=== PATIENT | female | born 1975 | race Caucasian/White ===

== ENCOUNTER 2017-03-01 00:17 | Emergency (ER) | payer MEDICAID, OTHER ==
[~2017-03-01] VITALS: Ht 170.2 cm; Wt 52.2 kg
--- NOTE | 2017-03-01 00:25 | NUR ---
TO BED 6 A 41 YO FEMALE PATIENT BIBSELF C/O LEFT SIDE ABD PAIN RADIATING TO BACK. +N/V SINCE YESTERDAY. VSS. NAD NOTED. NONDIAPHORETIC. GOWNED. PLACED ON MONITOR. COMFORT MEASURES RENDERED.
--- NOTE | 2017-03-01 00:30 | NUR ---
DR MCNULTY AT BEDSIDE TO EVALUATE PATIENT.
--- NOTE | 2017-03-01 00:40 | NUR ---
started a saline lock on the lac g20, blood drawn and sent to lab.
[2017-03-01] MEDS ORDERED: ONDANSETRON HCL/PF 4 MG/2 ML VIAL ONE ×2 (00:41→01:57)
[2017-03-01] MEDS ORDERED: HYDROMORPHONE INJ 2 MG/ML DISP.SYRIN ONE (00:42)
[2017-03-01 00:51] LABS: BASOPHILS # (AUTO) 0.1 /CMM (0.0-0.2); BASOPHILS % (AUTO) 0.5 % (0.0-2.0); EOSINOPHILS # (AUTO) 0.3 /CMM (0.0-0.7); EOSINOPHILS % (AUTO) 2.6 % (0.0-6.0); HEMATOCRIT 38 % (33-45); HEMOGLOBIN 12.6 g/dL (11.5-14.8); LYMPHOCYTES # (AUTO) 2.1 /CMM (0.8-4.8); LYMPHOCYTES % (AUTO) 16.2 % (20.0-44.0); MEAN CORPUSCULAR HEMOGLOBIN 29 PG (26.0-33.0); MEAN CORPUSCULAR HGB CONC 34 g/dl (31.0-36.0); MEAN CORPUSCULAR VOLUME 87 fL (82-100); MONOCYTES # (AUTO) 0.5 /CMM (0.1-1.30); MONOCYTES % (AUTO) 3.9 % (2.0-12.0); NEUTROPHILS # (AUTO) 9.9 /CMM (1.8-8.9); NEUTROPHILS % (AUTO) 76.8 % (43.0-81.0); PLATELET COUNT (AUTO) 281 /CMM (150-450); RDW COEFFICIENT OF VARIATION 14.1 (11.5-15.0); RED BLOOD CELL COUNT(AUTO) 4.36 MIL/uL (4.0-5.2); WHITE BLOOD COUNT (AUTO) 12.9 K/uL (4.3-11.0)
[2017-03-01] MEDS ORDERED: HYDROMORPHONE INJ 2 MG/ML DISP.SYRIN IV ONE (01:00)
[2017-03-01] MEDS ORDERED: ONDANSETRON HCL/PF 4 MG/2 ML VIAL IVP ONE (01:00)
[2017-03-01] MEDS ORDERED: IV NS 0.9% 1,000 ML BAG IV ONE (01:00)
--- NOTE | 2017-03-01 01:00 | NUR ---
urine collected via clean catch, sent to lab.
[2017-03-01 01:07] LABS: APPEARANCE,URINE CLEAR (CLEAR); BILIRUBIN,URINE NEGATIVE (NEGATIVE); BLOOD, URINE NEGATIVE Ery/uL (NEGATIVE); COLOR,URINE YELLOW (YELLOW); KETONES,URINE NEGATIVE (NEGATIVE); LEUKOCYTE ESTERASE ,URINE NEGATIVE (NEGATIVE); NITRITE, URINE NEGATIVE (NEGATIVE); PROTEIN,URINE NEGATIVE (NEGATIVE); UGLUCOSE NEGATIVE (NEGATIVE); UROBILINOGEN,URINE 0.2 EU/dL (0.2)
[2017-03-01 01:08] LABS: ALANINE AMINOTRANSFERASE 23 U/L (12-78); ALKALINE PHOSPHATASE 53 U/L (46-116); ASPARTATE AMINOTRANSFERASE 23 U/L (15-37); BILIRUBIN,TOTAL 0.2 mg/dL (0.2-1.0); CALCIUM, SERUM 8.9 mg/dL (8.5-10.1); CARBON DIOXIDE 30 mmol/L (21-32); CHLORIDE 101 mmol/L (98-107); CREATININE 0.8 mg/dL (0.6-1.3); GLUCOSE 91 mg/dL (74-106); LIPASE 150 U/L (73-393); SODIUM SERUM 139 mmol/L (136-145); TOTAL PROTEIN, SERUM 7.8 g/dL (6.4-8.2); UREA NITROGEN, BLOOD 13 mg/dL (7-18)
[2017-03-01 01:09] LABS: TROPONIN I < 0.017 ng/mL (0.00-0.056)
[2017-03-01 01:10] LABS: POTASSIUM 2.8 mmol/L (3.5-5.1)
[2017-03-01] MEDS ORDERED: KETOROLAC TROMETHAMINE INJ 30 MG/ML VIAL ONE (01:23)
--- NOTE | 2017-03-01 01:24 | NUR ---
PATIENT BACK FROM RADIOLOGY.
[2017-03-01] MEDS ORDERED: KETOROLAC TROMETHAMINE INJ 30 MG/ML VIAL IV ONE (01:30)
[2017-03-01] MEDS ORDERED: POTASSIUM CHLORIDE 20 MEQ TAB.PRT.SR PO ONE ×3 (01:54→02:00)
[2017-03-01] MEDS ORDERED: ONDANSETRON HCL/PF 4 MG/2 ML VIAL IV ONE (02:00)
--- NOTE | 2017-03-01 02:57 | NUR ---
IV removed. Catheter intact and site benign. Pressure and 4x4 applied to site. No bleeding noted. Patient discharged to home in stable condition. Written and verbal after care instructions given. Patient verbalizes understanding of instruction. Patient is ambulatory with steady gait, Instructed not to drive. No further complaints.
[2017-03-01 02:58] VITALS: BP 127/80
== END 2017-03-01 02:59 | disposition home or self-care (01) ==
LOC: ER 00:19
DX: K59.00 Constipation, unspecified (principal); K56.609 Unspecified intestinal obstruction, unspecified as to partial versus complete obstruction; Z85.42 Personal history of malignant neoplasm of other parts of uterus; Z90.710 Acquired absence of both cervix and uterus
CPT/HCPCS: 36415; 74176; 76856; 80048; 80076; 81001; 83690; 84484; 85025; 93005; 96361; 96374; 96375; 96376; 99285; A4606; J1170; J1885; J2405 ×2; J7030; 81000-TC; Z7610

== ENCOUNTER 2017-05-29 20:00 | Emergency (ER) | payer OTHER ==
[~2017-05-29] VITALS: Ht 167.6 cm; Wt 47.6 kg
--- NOTE | 2017-05-29 20:05 | NUR ---
TO BED 9 A 42 YO FEMALE PATIENT BIBSELF C/O "LLQ PAIN SINCE THIS MORNING." VSS. NAD NOTED. SKIN WARM AND DRY. COMFORT MEASURES RENDERED.
--- NOTE | 2017-05-29 20:10 | NUR ---
DR POST AT BEDSIDE TO EVALUATE PATIENT.
[2017-05-29] MEDS ORDERED: HYDROMORPHONE INJ 0.5 MG/0.5 ML SYRINGE ONE ×2 (20:18→21:20)
[2017-05-29] MEDS ORDERED: ONDANSETRON HCL/PF 4 MG/2 ML VIAL ONE (20:18)
--- NOTE | 2017-05-29 20:25 | NUR ---
STARTED A SALINE LOCK ON THE LAC G20, BLOOD DRAWN AND SENT TO LAB.
[2017-05-29 20:27] LABS: BASOPHILS # (AUTO) 0.1 /CMM (0.0-0.2); BASOPHILS % (AUTO) 1.1 % (0.0-2.0); EOSINOPHILS # (AUTO) 0.3 /CMM (0.0-0.7); EOSINOPHILS % (AUTO) 3.2 % (0.0-6.0); HEMATOCRIT 38 % (33-45); HEMOGLOBIN 13.1 g/dL (11.5-14.8); LYMPHOCYTES # (AUTO) 2.6 /CMM (0.8-4.8); LYMPHOCYTES % (AUTO) 33.2 % (20.0-44.0); MEAN CORPUSCULAR HEMOGLOBIN 28 PG (26.0-33.0); MEAN CORPUSCULAR HGB CONC 34 g/dl (31.0-36.0); MEAN CORPUSCULAR VOLUME 83 fL (82-100); MONOCYTES # (AUTO) 0.5 /CMM (0.1-1.30); NEUTROPHILS # (AUTO) 4.4 /CMM (1.8-8.9); NEUTROPHILS % (AUTO) 56.5 % (43.0-81.0); PLATELET COUNT (AUTO) 277 /CMM (150-450); RDW COEFFICIENT OF VARIATION 13.9 (11.5-15.0); RED BLOOD CELL COUNT(AUTO) 4.64 MIL/uL (4.0-5.2); WHITE BLOOD COUNT (AUTO) 7.9 K/uL (4.3-11.0)
[2017-05-29] MEDS ORDERED: IV NS 0.9% 500 ML BAG IV ONE (20:30)
[2017-05-29] MEDS ORDERED: HYDROMORPHONE INJ 2 MG/ML DISP.SYRIN IV ONE (20:30)
[2017-05-29] MEDS ORDERED: ONDANSETRON HCL/PF 4 MG/2 ML VIAL IVP ONE (20:30)
--- NOTE | 2017-05-29 20:33 | NUR ---
MEDICATED PATIENT ORDERED BY DR POST.
[2017-05-29 20:48] LABS: APPEARANCE,URINE Clear (CLEAR); BILIRUBIN,URINE Negative (NEGATIVE); BLOOD, URINE Negative Ery/uL (NEGATIVE); COLOR,URINE Yellow (YELLOW); KETONES,URINE Negative (NEGATIVE); LEUKOCYTE ESTERASE ,URINE Negative (NEGATIVE); NITRITE, URINE Negative (NEGATIVE); PROTEIN,URINE Negative (NEGATIVE); UGLUCOSE Negative (NEGATIVE); UROBILINOGEN,URINE 0.2 EU/dL (0.2)
--- NOTE | 2017-05-29 20:48 | NUR ---
ONGOING ULTRASOUND AT THE BEDSIDE.
[2017-05-29] MEDS ORDERED: HYDROMORPHONE INJ 0.5 MG/0.5 ML SYRINGE IV ONE (21:00)
[2017-05-29 21:25] LABS: ALBUMIN 4.2 g/dL (3.4-5.0); BILIRUBIN,DIRECT 0.1 mg/dL (0.0-0.2); BILIRUBIN,TOTAL 0.3 mg/dL (0.2-1.0); CALCIUM, SERUM 9.2 mg/dL (8.5-10.1); CREATININE 0.8 mg/dL (0.6-1.3); TOTAL PROTEIN, SERUM 8.1 g/dL (6.4-8.2)
[2017-05-29 21:28] LABS: POTASSIUM 2.7 mmol/L (3.5-5.1)
--- NOTE | 2017-05-29 22:35 | NUR ---
IV removed. Catheter intact and site benign. Pressure and 4x4 applied to site. No bleeding noted. Patient discharged to home in stable condition. Written and verbal after care instructions given. Patient verbalizes understanding of instruction. Patient is ambulatory with steady gait, instructed patient not to drive. vss. nad noted. no further complaints.
[2017-05-29 23:28] VITALS: BP 115/58
== END 2017-05-29 23:32 | disposition home or self-care (01) ==
LOC: ER 20:01
DX: N20.1 Calculus of ureter (principal); N83.202 Unspecified ovarian cyst, left side; C55 Malignant neoplasm of uterus, part unspecified; Z90.710 Acquired absence of both cervix and uterus; Z87.442 Personal history of urinary calculi; Z90.5 Acquired absence of kidney
CPT/HCPCS: 36415; 76856-TC; 80048-TC; 80076-TC; 81000-TC; 83690-TC; 84703-TC; 85025-TC; 87086-TC; A4606; J2405; J7040; Z7610

== ENCOUNTER 2017-06-01 09:55 | Emergency (ER) | payer OTHER ==
[~2017-06-01] VITALS: Ht 167.6 cm; Wt 47.6 kg
--- NOTE | 2017-06-01 10:10 | NUR ---
PATIENT TO ED ACCOMPANIED BY FAMILY DT LEFT FLANK PAIN, SHARP X 4 DAYS NOT RELIEVED BY [facility]CO. PATIENT IS [id number]. REPORTED VOMITTING X 1 TODAY. SKIN IS WARM TO TOUCH AND NON DIPAHORETIC. PATIENT IS AFEBRILE. VSS
--- NOTE | 2017-06-01 10:11 | NUR ---
MD KELLER AT BEDSIDE
[2017-06-01] MEDS ORDERED: ONDANSETRON HCL/PF 4 MG/2 ML VIAL ONE (10:19)
[2017-06-01] MEDS ORDERED: [UNRECOGNIZED DRUG - OTHER] (10:19)
[2017-06-01] MEDS ORDERED: TRAZODONE 50MG TABLETS (10:19)
[2017-06-01] MEDS ORDERED: HYDROMORPHONE INJ 0.5 MG/0.5 ML SYRINGE ONE (10:19)
[2017-06-01] MEDS ORDERED: CEPHALEXIN 500MG CAPSULES (10:19)
[2017-06-01] MEDS ORDERED: GABAPENTIN 600 MG (10:19)
[2017-06-01] MEDS ORDERED: ASENAPINE 10 MG (10:19)
[2017-06-01] MEDS ORDERED: HYDROCODONE/ACETAMINOPHEN 5-32 (10:20)
[2017-06-01] MEDS ORDERED: FLUOXETINE 20 MG (10:20)
[2017-06-01] MEDS ORDERED: VITAMIN D3 (10:20)
[2017-06-01] MEDS ORDERED: SEROQUEL 400 MG (10:20)
--- NOTE | 2017-06-01 10:28 | NUR ---
URINE SAMPLE SENT TO LAB
[2017-06-01 10:29] LABS: BASOPHILS % (AUTO) 0.3 % (0.0-2.0); EOSINOPHILS # (AUTO) 0.2 /CMM (0.0-0.7); EOSINOPHILS % (AUTO) 2.2 % (0.0-6.0); HEMATOCRIT 39 % (33-45); HEMOGLOBIN 12.9 g/dL (11.5-14.8); LYMPHOCYTES % (AUTO) 9.9 % (20.0-44.0); MEAN CORPUSCULAR HEMOGLOBIN 28 PG (26.0-33.0); MEAN CORPUSCULAR HGB CONC 33 g/dl (31.0-36.0); MEAN CORPUSCULAR VOLUME 84 fL (82-100); MONOCYTES # (AUTO) 0.7 /CMM (0.1-1.30); MONOCYTES % (AUTO) 7.3 % (2.0-12.0); NEUTROPHILS # (AUTO) 7.8 /CMM (1.8-8.9); NEUTROPHILS % (AUTO) 80.3 % (43.0-81.0); PLATELET COUNT (AUTO) 263 /CMM (150-450); WHITE BLOOD COUNT (AUTO) 9.7 K/uL (4.3-11.0)
[2017-06-01] MEDS ORDERED: HYDROMORPHONE INJ 2 MG/ML DISP.SYRIN IV ONE (10:30)
[2017-06-01] MEDS ORDERED: ONDANSETRON HCL/PF 4 MG/2 ML VIAL IVP ONE (10:30)
[2017-06-01 10:31] LABS: APPEARANCE,URINE SL CLOUDY (CLEAR); BILIRUBIN,URINE NEGATIVE (NEGATIVE); BLOOD, URINE NEGATIVE Ery/uL (NEGATIVE); COLOR,URINE YELLOW (YELLOW); KETONES,URINE 1+ (NEGATIVE); LEUKOCYTE ESTERASE ,URINE NEGATIVE (NEGATIVE); NITRITE, URINE NEGATIVE (NEGATIVE); PROTEIN,URINE NEGATIVE (NEGATIVE); UGLUCOSE NEGATIVE (NEGATIVE); UROBILINOGEN,URINE 0.2 EU/dL (0.2)
[2017-06-01 10:34] LABS: BACTERIA,URINE Few /HPF (None Seen); RBC,URINE NONE SEEN /HPF (0-2); SQUAMOUS EPITHELIAL CELL,UR Few /HPF (None Seen); WBC,URINE 0-2 /HPF (0-3)
[2017-06-01 10:53] LABS: ALBUMIN 4.1 g/dL (3.4-5.0); BILIRUBIN,DIRECT 0.1 mg/dL (0.0-0.2); BILIRUBIN,TOTAL 0.4 mg/dL (0.2-1.0); CALCIUM, SERUM 9.2 mg/dL (8.5-10.1); TOTAL PROTEIN, SERUM 8.5 g/dL (6.4-8.2)
[2017-06-01 10:55] LABS: POTASSIUM 2.5 mmol/L (3.5-5.1)
[2017-06-01] MEDS ORDERED: POTASSIUM CHLORIDE 20 MEQ TAB.PRT.SR PO ONE ×2 (11:00→11:02)
[2017-06-01 11:12] VITALS: BP 102/58
--- NOTE | 2017-06-01 11:12 | NUR ---
Patient discharged to home in stable condition. Written and verbal after care instructions given. Patient verbalizes understanding of instruction.IV removed. Catheter intact and site benign. Pressure and 4x4 applied to site. No bleeding noted.
== END 2017-06-01 11:13 | disposition home or self-care (01) ==
LOC: ER 09:56
DX: R10.9 Unspecified abdominal pain (principal)
CPT/HCPCS: 36415; 80048; 80076; 81001; 83690; 85025; 96374; 96375; 99284; A4606; J2405; Z7610; 81000-TC